=== PATIENT | female | born 1990 | race Caucasian/White ===

== ENCOUNTER 2017-05-21 06:20 | Emergency (ER) | payer MEDICAID ==
[2017-05-21] MEDS: ALBUTEROL 0.5% (NEB) 2.5 MG/0.5 ML AMP INH (07:36)
[2017-05-21] MEDS: IPRATROPIUM (NEB) 0.5 MG/2.5 ML AMP INH (07:37)
== END 2017-05-21 08:50 | disposition home or self-care (01) ==
LOC: FTE 06:20
DX: O99.512 Diseases of the respiratory system complicating pregnancy, second trimester (principal); J20.9 Acute bronchitis, unspecified; R06.02 Shortness of breath; Z3A.20 20 weeks gestation of pregnancy
CPT/HCPCS: 94644; 99284-25

== ENCOUNTER 2017-07-12 08:42 | Emergency (ER) | payer MEDICAID ==
[2017-07-12] MEDS: predniSONE 20 MG TAB PO (10:03)
[2017-07-12] MEDS: ALBUTEROL 0.083% (NEB) 2.5 MG/3 ML AMP HHN (10:39)
== END 2017-07-12 11:30 | disposition home or self-care (01) ==
LOC: FTE 08:42
DX: O99.89 Other specified diseases and conditions complicating pregnancy, childbirth and the puerperium (principal); R05 Cough; J45.909 Unspecified asthma, uncomplicated; O99.513 Diseases of the respiratory system complicating pregnancy, third trimester; Z3A.28 28 weeks gestation of pregnancy
CPT/HCPCS: 87400; 94664; 99284-25

== ENCOUNTER 2017-09-13 11:49 | Emergency (ER) | payer MEDICAID ==
[2017-09-13 13:01] LABS: URINE BLOOD (Dip) POC Negative (NEGATIVE); URINE GLUCOSE (Dip) POC Negative (NEGATIVE); URINE KETONES (Dip) POC 1+ (NEGATIVE); URINE LEUKOCYTE EST (Dip) POC Trace (NEGATIVE); URINE NITRITE (Dip) POC Negative (NEGATIVE); URINE TOTAL PROTEIN POC Negative (NEGATIVE)
[2017-09-13] MEDS: SOD CHLORIDE 0.9% 1,000 ML IV (13:17)
[2017-09-13 13:32] LABS: WHITE BLOOD COUNT 9.4 10^3/ul (4.8-10.8)
[2017-09-13 13:32] LABS: ABNORMAL IP MESSAGE 1; HEMATOCRIT 37.2 % (37.0-47.0); HEMOGLOBIN 12.9 g/dl (12.0-16.0); MEAN CORPUSCULAR HEMOGLOBIN 32.5 pg (29.0-33.0); MEAN CORPUSCULAR HGB CONC 34.7 g/dl (32.0-37.0); MEAN CORPUSCULAR VOLUME 93.7 fl (82.0-101.0); MEAN PLATELET VOLUME 11.1 fl (7.4-10.4); PLATELET COUNT 238 10^3/UL (140-415); RED BLOOD COUNT 3.97 10^6/ul (4.20-5.40); RED CELL DISTRIBUTION WIDTH 13.8 % (11.5-14.5)
[2017-09-13 13:33] LABS: ADD MAN DIFF? YES; POSITIVE DIFF @See below
[2017-09-13 13:48] LABS: LACTIC ACID 1.4 mmol/L (0.5-2.0)
[2017-09-13 13:52] LABS: BAND NEUTROPHILS #M 2.2 10^3/ul (0.0-0.6); BAND NEUTROPHILS % (M) 24 % (0-4); LYMPHOCYTES #M 0.3 10^3/ul (0.8-2.9); LYMPHOCYTES % (M) 4 % (15-51); METAMYELOCYTES #M 0.5 10^3/ul (0.0-0.0); METAMYELOCYTES %M 6 % (0-0); MONOCYTE #M 0.7 10^3/ul (0.3-0.9); MONOCYTES % (M) 8 % (0-11); MYELOCYTES #M 0.3 10^3/ul (0.0-0.0); MYELOCYTES % (M) 4 % (0-0); PLATELET ESTIMATE NORMAL; REACTIVE LYMPHOCYTES% (M) 1 % (0-0); SEG NEUT #M 5.2 10^3/ul (1.6-7.5); SEGMENTED NEUTROPHILS (M) % 53 % (39-77); SMUDGE%M 7 % (0-0)
[2017-09-13 13:58] LABS: ALANINE AMINOTRANSFERASE 38 IU/L (13-69); ALBUMIN/GLOBULIN RATIO 1.11; ALKALINE PHOSPHATASE 227 IU/L (42-121); ANION GAP 17 (8-16); ASPARTATE AMINO TRANSFERASE 38 IU/L (15-46); BILIRUBIN,INDIRECT 0.7 mg/dl (0-1.1); BILIRUBIN,TOTAL 0.7 mg/dl (0.2-1.3); BLOOD UREA NITROGEN 5 mg/dl (7-20); CALCIUM 9.3 mg/dl (8.4-10.2); CARBON DIOXIDE 20 mmol/L (21-31); CHLORIDE 99 mmol/L (97-110); CREATININE 0.64 mg/dl (0.44-1.00); GLUCOSE 66 mg/dl (70-220); POTASSIUM 3.5 mmol/L (3.5-5.1); SODIUM 132 mmol/L (135-144); TOTAL PROTEIN 7.6 g/dl (6.1-8.1)
== END 2017-09-13 14:36 | disposition home or self-care (01) ==
LOC: FTE 11:49
DX: O99.513 Diseases of the respiratory system complicating pregnancy, third trimester (principal); J06.9 Acute upper respiratory infection, unspecified; R50.9 Fever, unspecified; J45.909 Unspecified asthma, uncomplicated
CPT/HCPCS: 71045; 80053; 81003; 83605; 85025; 87040; 87086; 99284-25

== ENCOUNTER 2017-09-13 14:42 | Inpatient (IN) | payer MEDICAID ==
[2017-09-13] MEDS: LACTATED RINGER'S 1,000 ML IV ×2 (16:59→21:10)
[2017-09-13] MEDS: GUAIFENESIN 20 MG/ML 5ML CUP PO (17:03)
[2017-09-14] MEDS: LACTATED RINGER'S 1,000 ML IV ×3 (04:42→13:50)
[2017-09-14] MEDS ORDERED: METHYLERGONOVINE 0.2 MG INJ IM ×3 (08:30→14:00)
[2017-09-14] MEDS ORDERED: BUTORPHANOL 2 MG INJ IV ×2 (08:30→14:00)
[2017-09-14] MEDS ORDERED: LIDOCAINE 1% (MPF) 30 ML INJ INJ ×2 (08:30→14:00)
[2017-09-14] MEDS ORDERED: CARBOPROST 250 MCG INJ IM ×3 (08:30→14:00)
[2017-09-14] MEDS ORDERED: IBUPROFEN 600 MG TAB PO ×2 (08:30→14:00)
[2017-09-14] MEDS ORDERED: BUTORPHANOL 1 MG INJ IV ×2 (08:30→14:00)
[2017-09-14] MEDS ORDERED: MISOPROSTOL 200 MCG TAB PR ×3 (08:30→14:00)
[2017-09-14] MEDS ORDERED: OXYTOCIN 30 UNITS/LR 500 ML IV ×8 (08:30→14:00)
[2017-09-14] MEDS ORDERED: CEFAZOLIN 2 GM/50 ML (PMX) 50 ML IVPB (08:58)
[2017-09-14] MEDS ORDERED: CEFAZOLIN 2 GM/50 ML (PMX) 50 ML IV (09:00)
[2017-09-14 09:35] LABS: WHITE BLOOD COUNT 6.6 10^3/ul (4.8-10.8)
[2017-09-14 09:35] LABS: ABNORMAL IP MESSAGE 1; HEMATOCRIT 34.6 % (37.0-47.0); HEMOGLOBIN 12.1 g/dl (12.0-16.0); MEAN CORPUSCULAR HEMOGLOBIN 32.5 pg (29.0-33.0); MEAN PLATELET VOLUME 11.1 fl (7.4-10.4); PLATELET COUNT 213 10^3/UL (140-415); RED BLOOD COUNT 3.72 10^6/ul (4.20-5.40)
[2017-09-14 09:36] LABS: ADD MAN DIFF? YES; POSITIVE DIFF @See below
[2017-09-14] MEDS ORDERED: METOCLOPRAMIDE 10 MG INJ (09:55)
[2017-09-14] MEDS ORDERED: morphine SULFATE/PF (10 MG/10 ML) INJ (09:55)
[2017-09-14] MEDS ORDERED: ONDANSETRON 4 MG INJ (09:55)
[2017-09-14] MEDS ORDERED: EPHEDrine SULFATE 50 MG/5 ML SYG (09:55)
[2017-09-14] MEDS ORDERED: OXYTOCIN 10 UNIT INJ ×2 (09:56→11:09)
[2017-09-14] MEDS ORDERED: BUPIVACAINE 0.75%/DEXT (SPINAL) 2 ML INJ (09:59)
[2017-09-14 10:01] LABS: INR 0.82; PARTIAL THROMBOPLASTIN TIME 30.6 Sec (25.0-35.0); PROTIME 11.3 Sec (11.9-14.9); PT RATIO 0.9
[2017-09-14] MEDS ORDERED: PHENYLephrine 10 MG INJ (10:53)
[2017-09-14 11:25] LABS: BAND NEUTROPHILS #M 0.3 10^3/ul (0.0-0.6); BAND NEUTROPHILS % (M) 5 % (0-4); BASOPHILS % (M) 1 % (0-2); EOSINOPHILS % (M) 1 % (0-7); GIANT THROMBO% (M) 3 % (0-0); LYMPHOCYTES #M 1.4 10^3/ul (0.8-2.9); LYMPHOCYTES % (M) 22 % (15-51); METAMYELOCYTES #M 0.1 10^3/ul (0.0-0.0); METAMYELOCYTES %M 2 % (0-0); MONOCYTE #M 0.7 10^3/ul (0.3-0.9); MONOCYTES % (M) 11 % (0-11); MYELOCYTES #M 0.1 10^3/ul (0.0-0.0); MYELOCYTES % (M) 2 % (0-0); PLATELET ESTIMATE NORMAL; POIKILOCYTOSIS 1+ (0-0); POLYCHROMASIA 1+ (0-0); SEG NEUT #M 3.7 10^3/ul (1.6-7.5); SEGMENTED NEUTROPHILS (M) % 56 % (39-77)
[2017-09-14] MEDS ORDERED: EPHEDrine SULFATE 50 MG/5 ML SYG IV ×2 (11:30→14:00)
[2017-09-14] MEDS ORDERED: DIPHENHYDRAMINE 50 MG INJ IV ×3 (11:30→14:00)
[2017-09-14] MEDS ORDERED: ONDANSETRON 4 MG INJ IV ×2 (11:30→14:00)
[2017-09-14] MEDS ORDERED: NALOXONE (0.4 MG/ML) INJ IV ×2 (11:30→14:00)
[2017-09-14] MEDS: morphine SULFATE/PF (10 MG/10 ML) INJ SPINAL ×2 (11:30→14:33)
[2017-09-14] MEDS ORDERED: morphine 2 MG INJ IV ×4 (11:30→14:00)
[2017-09-14] MEDS ORDERED: LACTATED RINGER'S 1,000 ML IV (13:50)
[2017-09-14] MEDS ORDERED: ZOLPIDEM 5 MG TAB PO (14:00)
[2017-09-14] MEDS ORDERED: KETOROLAC 30 MG INJ IV (14:00)
[2017-09-14] MEDS ORDERED: OXYCODONE/ACETAMINOPHEN (5/325) TAB PO (14:00)
[2017-09-14] MEDS: ONDANSETRON 4 MG INJ IV (14:42)
[2017-09-14] MEDS: LANOLIN 7 GM TUBE TOP (14:44)
[2017-09-14 15:02] LABS: RAPID PLASMA REAGIN NONREACTIVE (NR)
[2017-09-14] MEDS: SENNA/DOCUSATE NA (8.6MG/50MG) TAB PO (21:00)
[2017-09-14] MEDS: CEFAZOLIN 2 GM/50 ML (PMX) 50 ML IV (22:38)
[2017-09-15] MEDS: LACTATED RINGER'S 1,000 ML IV ×4 (01:55→21:50)
[2017-09-15] MEDS: KETOROLAC 30 MG INJ IV (06:47)
[2017-09-15 06:54] LABS: ADD MAN DIFF? NO
[2017-09-15 06:59] LABS: WHITE BLOOD COUNT 10.3 10^3/ul (4.8-10.8)
[2017-09-15 06:59] LABS: BASOPHILS % 0.3 % (0.0-2.0); EOSINOPHILS # 0.1 10^3/ul (0.0-0.5); EOSINOPHILS % 0.7 % (0.0-7.0); HEMATOCRIT 31.1 % (37.0-47.0); HEMOGLOBIN 10.7 g/dl (12.0-16.0); LYMPHOCYTES # 1.7 10^3/ul (0.8-2.9); LYMPHOCYTES % 16.1 % (15.0-51.0); MEAN CORPUSCULAR HEMOGLOBIN 32.5 pg (29.0-33.0); MEAN CORPUSCULAR HGB CONC 34.4 g/dl (32.0-37.0); MEAN CORPUSCULAR VOLUME 94.5 fl (82.0-101.0); MEAN PLATELET VOLUME 10.9 fl (7.4-10.4); MONOCYTE # 0.6 10^3/ul (0.3-0.9); MONOCYTES % 5.6 % (0.0-11.0); NEUTROPHIL # 7.8 10^3/ul (1.6-7.5); PLATELET COUNT 222 10^3/UL (140-415); RED BLOOD COUNT 3.29 10^6/ul (4.20-5.40); RED CELL DISTRIBUTION WIDTH 13.7 % (11.5-14.5)
[2017-09-15] MEDS: SENNA/DOCUSATE NA (8.6MG/50MG) TAB PO ×2 (08:46→21:57)
[2017-09-15] MEDS: IBUPROFEN 600 MG TAB PO ×2 (12:49→18:25)
[2017-09-15] MEDS: DIPHENHYDRAMINE 25 MG CAP PO (22:24)
[2017-09-15] MEDS: GUAIFENESIN 20 MG/ML 5ML CUP PO (22:31)
[2017-09-16] MEDS: IBUPROFEN 600 MG TAB PO ×5 (00:20→23:57)
[2017-09-16] MEDS: LACTATED RINGER'S 1,000 ML IV ×2 (05:50→13:50)
[2017-09-16] MEDS: GUAIFENESIN 20 MG/ML 5ML CUP PO ×2 (08:22→17:40)
[2017-09-16] MEDS: SENNA/DOCUSATE NA (8.6MG/50MG) TAB PO ×2 (08:22→22:05)
[2017-09-16] MEDS: OXYCODONE/ACETAMINOPHEN (5/325) TAB PO (09:08)
[2017-09-16] MEDS: ALBUTEROL/IPRATROPIUM (NEB) 3 ML AMP HHN (09:25)
[2017-09-16] MEDS ORDERED: ALBUTEROL HFA 8 GM INHALER INH (10:00)
[2017-09-16] MEDS ORDERED: ACETAMINOPHEN 325 MG TAB PO (10:00)
[2017-09-17] MEDS: IBUPROFEN 600 MG TAB PO ×2 (05:38→11:59)
[2017-09-17] MEDS: SENNA/DOCUSATE NA (8.6MG/50MG) TAB PO (09:31)
[2017-09-17] MEDS: DIPHTH/TET/ACEL PERTUSS (ADULT) 0.5 ML VIAL IM* (15:27)
== END 2017-09-17 16:43 | disposition home or self-care (01) | DRG 766 ==
LOC: OBT 14:42 → L-D 09-14 08:10 → OBT 16:17 → L-D 16:05 → PP1 18:20
PROVIDERS: Obstetrics & Gynecology
PROC: 10D00Z1 Extraction of Products of Conception, Low, Open Approach (ICD-10-PCS; principal; 2017-09-14)
PROC: 3E033VJ Introduction of Other Hormone into Peripheral Vein, Percutaneous Approach (ICD-10-PCS; 2017-09-14)
DX: O76 Abnormality in fetal heart rate and rhythm complicating labor and delivery (principal); Z3A.38 38 weeks gestation of pregnancy; Z37.0 Single live birth
CPT/HCPCS: 36415; 76818; 85025; 85610; 85730; 86592; 86850; 86900; 86901; 88307; 90715; 94664; 99464